=== PATIENT | female | born 1990 | race Caucasian/White ===

== ENCOUNTER 2018-04-21 07:35 | Inpatient (IN) | payer MEDICAID ==
[2018-04-21] MEDS: MISOPROSTOL 25 MCG CAPSULE VAG ×3 (01:00→17:15)
[2018-04-21] MEDS ORDERED: LIDOCAINE 1% (MPF) 30 ML INJ INJ (09:30)
[2018-04-21] MEDS ORDERED: METHYLERGONOVINE 0.2 MG INJ IM (09:30)
[2018-04-21] MEDS ORDERED: OXYTOCIN 30 UNITS/LR 500 ML IV (09:30)
[2018-04-21] MEDS ORDERED: MISOPROSTOL 200 MCG TAB PR (09:30)
[2018-04-21] MEDS ORDERED: CARBOPROST 250 MCG INJ IM (09:30)
[2018-04-21] MEDS: LACTATED RINGER'S 1,000 ML IV* ×2 (09:57→17:12)
[2018-04-21 10:09] LABS: ADD MAN DIFF? NO
[2018-04-21 10:11] LABS: WHITE BLOOD COUNT 6.8 10^3/ul (4.8-10.8)
[2018-04-21 10:11] LABS: BASOPHILS % 0.4 % (0.0-2.0); EOSINOPHILS # 0.2 10^3/ul (0.0-0.5); EOSINOPHILS % 2.7 % (0.0-7.0); HEMATOCRIT 37.6 % (37.0-47.0); HEMOGLOBIN 12.4 g/dl (12.0-16.0); LYMPHOCYTES # 1.4 10^3/ul (0.8-2.9); LYMPHOCYTES % 20.1 % (15.0-51.0); MEAN CORPUSCULAR HEMOGLOBIN 28.2 pg (29.0-33.0); MEAN CORPUSCULAR VOLUME 85.6 fl (82.0-101.0); MEAN PLATELET VOLUME 9.8 fl (7.4-10.4); MONOCYTE # 0.5 10^3/ul (0.3-0.9); MONOCYTES % 7.1 % (0.0-11.0); NEUTROPHIL # 4.7 10^3/ul (1.6-7.5); PLATELET COUNT 305 10^3/UL (140-415); RED BLOOD COUNT 4.39 10^6/ul (4.20-5.40); RED CELL DISTRIBUTION WIDTH 14.5 % (11.5-14.5)
[2018-04-21 10:35] LABS: INR 0.94; PARTIAL THROMBOPLASTIN TIME 26.5 Sec (25.0-35.0); PROTIME 12.7 Sec (11.9-14.9)
[2018-04-21 15:39] LABS: RAPID PLASMA REAGIN NONREACTIVE (NR)
[2018-04-22] MEDS: LACTATED RINGER'S 1,000 ML IV* ×3 (00:53→17:13)
[2018-04-22] MEDS: MISOPROSTOL 25 MCG CAPSULE VAG ×3 (04:58→09:00)
[2018-04-22] MEDS ORDERED: OXYTOCIN 30 UNITS/LR 500 ML IV (10:00)
[2018-04-22] MEDS: OXYTOCIN 30 UNITS/LR 500 ML IV (10:50)
[2018-04-22] MEDS: BUTORPHANOL 2 MG INJ IV (13:03)
[2018-04-23] MEDS: LACTATED RINGER'S 1,000 ML IV* ×2 (01:14→04:12)
[2018-04-23] MEDS: AMPICILLIN 2 GM/NS (PMX) 100 ML IV (02:38)
[2018-04-23 03:05] LABS: ADD MAN DIFF? NO
[2018-04-23 03:07] LABS: WHITE BLOOD COUNT 19.8 10^3/ul (4.8-10.8)
[2018-04-23 03:07] LABS: BASOPHILS % 0.2 % (0.0-2.0); HEMATOCRIT 40.7 % (37.0-47.0); HEMOGLOBIN 13.5 g/dl (12.0-16.0); LYMPHOCYTES % 5.1 % (15.0-51.0); MEAN CORPUSCULAR HEMOGLOBIN 28.4 pg (29.0-33.0); MEAN CORPUSCULAR HGB CONC 33.2 g/dl (32.0-37.0); MEAN CORPUSCULAR VOLUME 85.5 fl (82.0-101.0); MEAN PLATELET VOLUME 9.8 fl (7.4-10.4); MONOCYTE # 1.1 10^3/ul (0.3-0.9); MONOCYTES % 5.7 % (0.0-11.0); NEUTROPHIL # 17.3 10^3/ul (1.6-7.5); NEUTROPHILS % 87.1 % (39.0-77.0); PLATELET COUNT 335 10^3/UL (140-415); RED BLOOD COUNT 4.76 10^6/ul (4.20-5.40); RED CELL DISTRIBUTION WIDTH 14.7 % (11.5-14.5)
[2018-04-23 03:25] LABS: ALANINE AMINOTRANSFERASE 19 IU/L (13-69); ALBUMIN 3.5 g/dl (3.3-4.9); ALKALINE PHOSPHATASE 232 IU/L (42-121); ANION GAP 16 (8-16); ASPARTATE AMINO TRANSFERASE 31 IU/L (15-46); BILIRUBIN,INDIRECT 0.6 mg/dl (0-1.1); BILIRUBIN,TOTAL 0.6 mg/dl (0.2-1.3); BLOOD UREA NITROGEN 9 mg/dl (7-20); CALCIUM 8.9 mg/dl (8.4-10.2); CARBON DIOXIDE 19 mmol/L (21-31); CHLORIDE 110 mmol/L (97-110); CREATININE 0.71 mg/dl (0.44-1.00); GLUCOSE 117 mg/dl (70-220); POTASSIUM 4.1 mmol/L (3.5-5.1); SODIUM 141 mmol/L (135-144)
[2018-04-23] MEDS ORDERED: TERBUTALINE 1 ML (03:32)
[2018-04-23] MEDS: TERBUTALINE 1 MG/ML INJ SC (03:37)
[2018-04-23] MEDS ORDERED: FENTAnyl 50 MCG/ML VIAL (06:38)
[2018-04-23] MEDS ORDERED: BUPIVACAINE 0.75%/DEXT (SPINAL) 2 ML INJ (06:39)
[2018-04-23] MEDS: CEFAZOLIN 2 GM/50 ML (PMX) 50 ML IVPB (06:40)
[2018-04-23] MEDS ORDERED: ONDANSETRON 4 MG INJ (06:54)
[2018-04-23] MEDS ORDERED: DEXAMETHASONE 4 MG/ML 1 ML INJ (06:54)
[2018-04-23] MEDS ORDERED: OXYTOCIN 30 UNITS/LR 500 ML BAG IV (07:00)
[2018-04-23] MEDS ORDERED: PHENYLephrine (100 MCG/ML) 5ML SYG (07:34)
[2018-04-23] MEDS ORDERED: KETOROLAC 30 MG INJ IV (08:30)
[2018-04-23] MEDS ORDERED: DIPHENHYDRAMINE 50 MG INJ IV (08:30)
[2018-04-23] MEDS ORDERED: NALOXONE (0.4 MG/ML) INJ IV (08:30)
[2018-04-23] MEDS ORDERED: ONDANSETRON 4 MG INJ IV (08:30)
[2018-04-23] MEDS ORDERED: ZOLPIDEM 5 MG TAB PO (08:30)
[2018-04-23] MEDS ORDERED: HYDROmorphONE 0.5 MG/0.5 ML SYG IV ×2 (08:30)
[2018-04-23] MEDS: OXYTOCIN 30 UNITS/LR 500 ML IV ×2 (08:40→15:07)
[2018-04-23] MEDS ORDERED: MISOPROSTOL 200 MCG TAB PR (09:30)
[2018-04-23] MEDS ORDERED: LANOLIN 7 GM TUBE TOP (09:30)
[2018-04-23] MEDS ORDERED: OXYTOCIN 30 UNITS/LR 500 ML IV (09:30)
[2018-04-23] MEDS ORDERED: HYDROCODONE/APAP (5/325) TAB PO (09:30)
[2018-04-23] MEDS ORDERED: METHYLERGONOVINE 0.2 MG TAB PO (09:30)
[2018-04-23] MEDS ORDERED: METHYLERGONOVINE 0.2 MG INJ IM (09:30)
[2018-04-23] MEDS ORDERED: CARBOPROST 250 MCG INJ IM (09:30)
[2018-04-23] MEDS ORDERED: IBUPROFEN 800 MG TAB PO (14:00)
[2018-04-23] MEDS: DEXTROSE 5%-LR 1,000 ML IV ×3 (15:12→22:43)
[2018-04-23] MEDS: SENNA/DOCUSATE NA (8.6MG/50MG) TAB PO (20:55)
[2018-04-24] MEDS: MAGNESIUM HYDROXIDE 30ML CUP PO (06:35)
[2018-04-24] MEDS: DEXTROSE 5%-LR 1,000 ML IV ×2 (06:35→17:10)
[2018-04-24] MEDS ORDERED: HYDROCODONE/APAP (5/325) TAB PO (06:44)
[2018-04-24] MEDS: IBUPROFEN 800 MG TAB PO ×3 (06:51→21:30)
[2018-04-24] MEDS: SENNA/DOCUSATE NA (8.6MG/50MG) TAB PO ×2 (09:03→21:04)
[2018-04-24 09:06] LABS: ADD MAN DIFF? NO
[2018-04-24 09:14] LABS: BASOPHILS % 0.1 % (0.0-2.0); EOSINOPHILS % 0.1 % (0.0-7.0); HEMATOCRIT 31.2 % (37.0-47.0); HEMOGLOBIN 10.2 g/dl (12.0-16.0); LYMPHOCYTES % 7.4 % (15.0-51.0); MEAN CORPUSCULAR HEMOGLOBIN 28.1 pg (29.0-33.0); MEAN CORPUSCULAR HGB CONC 32.7 g/dl (32.0-37.0); MEAN PLATELET VOLUME 9.9 fl (7.4-10.4); MONOCYTE # 0.7 10^3/ul (0.3-0.9); MONOCYTES % 4.8 % (0.0-11.0); NEUTROPHIL # 11.8 10^3/ul (1.6-7.5); NEUTROPHILS % 86.3 % (39.0-77.0); PLATELET COUNT 281 10^3/UL (140-415); RED BLOOD COUNT 3.63 10^6/ul (4.20-5.40); RED CELL DISTRIBUTION WIDTH 15.4 % (11.5-14.5)
[2018-04-24 09:14] LABS: WHITE BLOOD COUNT 13.6 10^3/ul (4.8-10.8)
[2018-04-24] MEDS: HYDROCODONE/APAP (5/325) TAB PO (19:09)
[2018-04-25] MEDS: DEXTROSE 5%-LR 1,000 ML IV (01:10)
[2018-04-25] MEDS: IBUPROFEN 800 MG TAB PO ×3 (05:31→22:22)
[2018-04-25 07:15] LABS: ADD MAN DIFF? NO
[2018-04-25 07:19] LABS: WHITE BLOOD COUNT 11.2 10^3/ul (4.8-10.8)
[2018-04-25 07:19] LABS: BASOPHILS % 0.2 % (0.0-2.0); EOSINOPHILS # 0.1 10^3/ul (0.0-0.5); EOSINOPHILS % 0.8 % (0.0-7.0); HEMATOCRIT 30.3 % (37.0-47.0); HEMOGLOBIN 9.7 g/dl (12.0-16.0); LYMPHOCYTES # 1.4 10^3/ul (0.8-2.9); LYMPHOCYTES % 12.5 % (15.0-51.0); MEAN CORPUSCULAR HEMOGLOBIN 27.4 pg (29.0-33.0); MEAN CORPUSCULAR VOLUME 85.6 fl (82.0-101.0); MONOCYTE # 0.5 10^3/ul (0.3-0.9); MONOCYTES % 4.4 % (0.0-11.0); NEUTROPHIL # 9.1 10^3/ul (1.6-7.5); NEUTROPHILS % 81.2 % (39.0-77.0); PLATELET COUNT 304 10^3/UL (140-415); RED BLOOD COUNT 3.54 10^6/ul (4.20-5.40); RED CELL DISTRIBUTION WIDTH 15.5 % (11.5-14.5)
[2018-04-25] MEDS: SENNA/DOCUSATE NA (8.6MG/50MG) TAB PO ×2 (08:47→20:30)
[2018-04-25] MEDS: HYDROCODONE/APAP (5/325) TAB PO ×2 (15:48→20:27)
[2018-04-26] MEDS: IBUPROFEN 800 MG TAB PO ×2 (06:04→13:44)
[2018-04-26] MEDS: MAGNESIUM HYDROXIDE 30ML CUP PO (06:04)
[2018-04-26] MEDS: SENNA/DOCUSATE NA (8.6MG/50MG) TAB PO (08:56)
[2018-04-26] MEDS: MEASLES,MUMPS,RUBELLA VACCINE INJ SC* (09:00)
[2018-04-26] MEDS: DIPHTH/TET/ACEL PERTUSS (ADULT) 0.5 ML VIAL IM* (10:43)
== END 2018-04-26 16:54 | disposition home or self-care (01) | DRG 766 ==
LOC: OBT 07:35 → L-D 04-23 06:11 → PP1 04-23 14:08 → OBT 09:36 → L-D 09:15
PROVIDERS: Obstetrics & Gynecology
PROC: 10D00Z1 Extraction of Products of Conception, Low, Open Approach (ICD-10-PCS; principal; 2018-04-24)
PROC: 3E033VJ Introduction of Other Hormone into Peripheral Vein, Percutaneous Approach (ICD-10-PCS; 2018-04-24)
DX: O48.0 Post-term pregnancy (principal); Z3A.40 40 weeks gestation of pregnancy; O36.63X0 Maternal care for excessive fetal growth, third trimester, not applicable or unspecified; Z37.0 Single live birth
CPT/HCPCS: 76815; 76818; 80053; 85025; 85610; 85730; 86592; 86850; 86900; 86901; 90715; 99464